=== PATIENT | female | born 1945 | race African-American/Black ===

== ENCOUNTER 2017-03-14 23:07 | Emergency (ER) | payer MEDICARE, MEDICAID ==
[~2017-03-14] VITALS: Ht 170.2 cm; Wt 100.0 kg
[2017-03-15] MEDS ORDERED: MORPHINE SULFATE 10 MG/ML CPJ IM ONE (03:45)
[2017-03-15 04:38] VITALS: BP 135/52
== END 2017-03-15 06:30 | disposition home or self-care (01) ==
LOC: ER 23:08
DX: M54.5 Low back pain (principal); M47.897 Other spondylosis, lumbosacral region; I10 Essential (primary) hypertension; Z85.3 Personal history of malignant neoplasm of breast; V43.62XA Car passenger injured in collision with other type car in traffic accident, initial encounter; Y93.89 Activity, other specified; Y92.481 Parking lot as the place of occurrence of the external cause
CPT/HCPCS: 72100; 96372; 99284; J2270

== ENCOUNTER 2023-07-01 01:02 | Emergency (ER) | payer MEDICARE, MEDICAID ==
[~2023-07-01] VITALS: Ht 165.1 cm; Wt 118.7 kg
[2023-07-01 01:12] VITALS: PULSE 114
[2023-07-01 01:19] VITALS: BP 142/79; RESP 16; TEMP 98.5
[2023-07-01 01:47] LABS: BASOPHILS % 0.3 % (0.0-2.0); EOSINOPHILS % 0.4 % (0.0-5.0); HEMATOCRIT. 43.5 % (36.0-48.0); HEMOGLOBIN. 14.3 g/dL (12.0-16.0); LYMPHOCYTES % 13.2 % (20.0-50.0); MEAN CORPUSCULAR HEMOGLOBIN 29.8 pg (28.0-32.0); MEAN CORPUSCULAR HGB CONC 32.8 g/dL (31.0-37.0); MEAN CORPUSCULAR VOLUME 90.6 fL (81.0-99.0); MEAN PLATELET VOLUME 7.2 fl (7.4-10.4); MONOCYTES % 6.5 % (2.0-8.0); NEUTROPHILS % 79.6 % (40.0-76.0); PLATELET 261 x1000/uL (130-400); RED CELL DISTRIBUTION WIDTH 13.8 % (11.6-14.6); WHITE BLOOD COUNT 5.8 x1000/uL (4.5-11.0)
[2023-07-01 02:09] LABS: CHLORIDE 108 mEq/L (98-107); INDEX HEMOLYSI 1 (1-3); INDEX ICTERIC 1 (1-4); INDEX LIPEMIC 1 (1-3); POTASSIUM 3.4 mEq/L (3.5-5.1); SODIUM 138 mEq/L (136-145)
[2023-07-01 02:16] LABS: ALANINE AMINOTRANSFERASE 15 IU/L (13-61); ALBUMIN 3.5 g/dL (3.4-5.0); ASPARTATE AMINOTRANSFERASE 12 IU/L (15-37); BILIRUBIN TOTAL 0.6 mg/dL (0.1-1.0); CALCIUM 8.4 mg/dL (8.5-10.1); CARBON DIOXIDE 26 mEq/L (21-32); CREATININE 0.7 mg/dL (0.6-1.3); GLUCOSE 164 mg/dL (70-105); PROTEIN TOTAL 7.9 g/dL (6.0-8.3); UREA NITROGEN BLOOD 12 mg/dL (7-21)
[2023-07-01] MEDS ORDERED: MORPHINE SULFATE 4 MG/ML CPJ (NOT FOR IM USE) IV NR (05:45)
[2023-07-01] MEDS ORDERED: FAMOTIDINE 20MG/2ML VIAL IV NR (05:45)
[2023-07-01] MEDS ORDERED: ONDANSETRON HCL 4MG/2ML INJ IV NR (05:45)
[2023-07-01] MEDS ORDERED: SODIUM CHLORIDE 0.9% 500 ML IV ONE (06:00)
[2023-07-01 06:23] LABS: TROPONIN I HIGH SENSITIVITY 33 ng/L (<54)
[2023-07-01] MEDS ORDERED: IOHEXOL-300 100 ML BOTTLE ONE (07:22)
[2023-07-01] MEDS ORDERED: TOPUD MT (08:29)
== END 2023-07-01 10:35 | disposition home or self-care (01) ==
LOC: ER 02:07
DX: K80.20 Calculus of gallbladder without cholecystitis without obstruction (principal)
CPT/HCPCS: 99285; 74177; 96374; 93971; 96375; 96361; 80053; 83690; 85025; 84484; 36415; 93005; Q9967; J3490; J2405; J2270